=== PATIENT | female | born 1995 | race African-American/Black ===

== ENCOUNTER 2019-03-16 23:47 | Inpatient (IN) ==
[2019-03-17] MEDS ORDERED: ONDANSETRON 4 MG/2 ML VIAL IV PRN ×2 (00:34→17:21)
[2019-03-17] MEDS ORDERED: BUTORPHANOL 2 MG/ML VIAL IV PRN (00:34)
[2019-03-17] MEDS ORDERED: LACTATED RINGERS 1,000 ML IV SCH ×2 (01:00→17:30)
[2019-03-17 01:01] LABS: Basophils % 0.2 % (0.0-0.8); Eosinophils # 0.1 10*3/uL (0.0-0.87); Eosinophils % 0.4 % (0.00-10.9); Hematocrit 28.6 VOL% (35.7-47.0); Hemoglobin 8.6 GM/DL (12.0-16.0); Immature Granulocytes % 0.8 %; Immature Granulocytes Absolute 0.09 #; Lymphocytes # 2.9 10*3/uL (1.4-4.0); Lymphocytes % 25.8 % (21.3-54.2); Mean Corpuscular HGB Conc 30.1 GM/DL (32-36); Mean Corpuscular Volume 77.7 FL (87-102); Mean Platelet Volume 10.4 FL (9.6-12.0); Monocytes % 7.6 % (1.7-12.7); Neutrophils % 65.2 % (38.7-73.9); Platelet Count 226 T/CUMM (130-400); Red Blood Count 3.68 MC/CUMM (3.8-5.5); Red Cell Distribution Width 15.7 % (9.3-17.3); White Blood Count 11.1 T/CUMM (4-12)
[2019-03-17] MEDS ORDERED: INFLUENZA VIRUS VACCINE 0.5 ML SYRINGE IM ONE (01:07)
[2019-03-17 01:19] LABS: Albumin 2.5 G/DL (3.4-5.0); Bilirubin,Total 0.4 MG/DL (0.2-1.0); Calcium 8.4 MG/DL (8.5-10.1); Osmolality,Calculated 274.4 MOS/KG (273-304); Total Protein 7.1 G/DL (6.4-8.3)
[2019-03-17] MEDS ORDERED: OXYTOCIN/LR 20 UNIT/1,000 ML BAG IV SCH (09:00)
[2019-03-17] MEDS ORDERED: diphenhydrAMINE 50 MG/1 ML VIAL IV PRN ×3 (09:35→22:13)
[2019-03-17] MEDS ORDERED: ePHEDrine 50 MG/ML AMP IV PRN (09:35)
[2019-03-17] MEDS ORDERED: CITRIC ACID/SODIUM CITRATE 30 ML UDCUP PO ONE (09:35)
[2019-03-17] MEDS ORDERED: NALOXONE 0.4 MG/ML VIAL IV PRN (09:35)
[2019-03-17] MEDS ORDERED: FAMOTIDINE 20 MG/2 ML VIAL IV ONE (09:35)
[2019-03-17] MEDS ORDERED: LACTATED RINGERS 1,000 ML IV ONE (09:35)
[2019-03-17] MEDS ORDERED: fentaNYL 2 MCG/ROPIV 0.2% EPID 100 ML EPIDURAL SCH (10:00)
[2019-03-17 11:50] LABS: Apearance,Urine CLEAR (Clear); Bacteria,Urine Occasional /HPF (Few); Bilirubin,Urine Negative (Negative); Blood, Urine Small mg/dL (Negative); Glucose,Urine (UA) Negative (Negative); Ketones,Urine 80 mg/dL (Negative); Mucus,Urine Many /LPF (Occasional); Nitrite,Urine Negative (Negative); Protein,Urine Negative; RBC,Urine 12 /HPF (0-4); Squamous Epithelial Cell,Urine Occasional /HPF (0-10); Urine Color Yellow (Yellow); Urine Specific Gravity 1.015 (1.001-1.035); WBC,Urine 24 /HPF (0-6)
[2019-03-17] MEDS ORDERED: ceFAZolin 3,000 MG in SYRINGE 1 EACH IV ONE (15:39)
[2019-03-17] MEDS ORDERED: OXYTOCIN/LR 30 UNIT/1,000 ML BAG IV ONE (15:46)
[2019-03-17] MEDS ORDERED: OXYTOCIN 10 UNIT/ML VIAL IM ONE (15:46)
[2019-03-17 17:14] LABS: Cord Arterial Blood HCO3 19.7 MMOL/L
[2019-03-17 17:14] LABS: Cord Venous Blood HCO3 23.8 MMOL/L; Cord Venous Blood PCO2 42.7 MMHG; Cord Venous Blood PO2 25.1 MMHG
[2019-03-17] MEDS ORDERED: RHO(D) IMMUNE GLOBULIN 300 MCG SYRINGE IM ONE (17:21)
[2019-03-17] MEDS ORDERED: SIMETHICONE CHEW 80 MG TABLET PO PRN (17:21)
[2019-03-17] MEDS ORDERED: OXYTOCIN/LR 20 UNIT/1,000 ML BAG IV ONE (17:21)
[2019-03-17] MEDS ORDERED: ACETAMINOPHEN 325 MG TABLET PO PRN (17:21)
[2019-03-17] MEDS ORDERED: MORPHINE 10 MG/10 ML VIAL ONE (17:34)
[2019-03-17] MEDS ORDERED: LIDOCAINE MPF 2% /EPI 20 ML VIAL ONE (17:35)
[2019-03-17] MEDS ORDERED: PHENYLEPHRINE 1 MG/10 ML SYRINGE IV ONE (17:35)
[2019-03-17] MEDS ORDERED: diphenhydrAMINE 50 MG/1 ML VIAL IV SCH (22:00)
[2019-03-17] MEDS: DOCUSATE SODIUM 100 MG CAPSULE PO SCH (22:21)
[2019-03-18] MEDS: ceFAZolin 1,000 MG in SYRINGE 1 EACH IV SCH ×2 (00:21→09:25)
[2019-03-18] MEDS: HydrOXYzine PAMOATE 25 MG CAPSULE PO PRN ×2 (01:29→08:26)
[2019-03-18 06:06] LABS: Basophils % 0.1 % (0.0-0.8); Eosinophils % 0.1 % (0.00-10.9); Hematocrit 26.8 VOL% (35.7-47.0); Hemoglobin 8.3 GM/DL (12.0-16.0); Immature Granulocytes % 0.6 %; Immature Granulocytes Absolute 0.08 #; Lymphocytes # 2.2 10*3/uL (1.4-4.0); Mean Corpuscular Volume 75.9 FL (87-102); Mean Platelet Volume 10.3 FL (9.6-12.0); Monocytes % 8.7 % (1.7-12.7); NRBC # 0.02 10*3/uL; Neutrophils % 74.5 % (38.7-73.9); Platelet Count 202 T/CUMM (130-400); Red Blood Count 3.53 MC/CUMM (3.8-5.5); Red Cell Distribution Width 15.9 % (9.3-17.3); White Blood Count 13.8 T/CUMM (4-12)
[2019-03-18] MEDS: MULTIVITAMIN (PRENATAL) TABLET PO SCH (08:26)
[2019-03-18] MEDS: METOCLOPRAMIDE 10 MG TABLET PO SCH ×2 (08:27→16:48)
[2019-03-18] MEDS: MAGNESIUM HYDROXIDE SUSP 30 ML UDCUP PO PRN ×2 (08:27→20:32)
[2019-03-18] MEDS: DOCUSATE SODIUM 100 MG CAPSULE PO SCH ×2 (09:25→20:32)
[2019-03-18] MEDS: FERROUS SULFATE 325 MG TABLET PO SCH ×2 (12:07→20:32)
[2019-03-18] MEDS: IBUPROFEN 800 MG TABLET PO PRN (14:52)
[2019-03-19] MEDS: METOCLOPRAMIDE 10 MG TABLET PO SCH ×2 (00:07→08:26)
[2019-03-19] MEDS: IBUPROFEN 800 MG TABLET PO PRN (04:06)
[2019-03-19] MEDS ORDERED: MAGNESIUM CITRATE 300 ML BOTTLE PO ONE (07:51)
[2019-03-19] MEDS: MULTIVITAMIN (PRENATAL) TABLET PO SCH (08:25)
[2019-03-19] MEDS: DOCUSATE SODIUM 100 MG CAPSULE PO SCH (08:25)
[2019-03-19] MEDS: FERROUS SULFATE 325 MG TABLET PO SCH (08:25)
[2019-03-19 08:53] VITALS: BP 131/75
[2019-03-19] MEDS ORDERED: DIPH/TET/ACEL PERT BOOSTER VACCINE 0.5 ML VIAL IM ONE (10:06)
[2019-03-19] MEDS ORDERED: INFLUENZA VIRUS VACCINE 0.5 ML SYRINGE IM ONE (10:06)
== END 2019-03-19 11:00 | disposition home health service (06) | DRG 540 ==
LOC: N.LDOUT 23:47 → N.LD 23:48 → N.OB 03-17 20:55
PROVIDERS: ADMIT Obstetrics & Gynecology; ATTEND Obstetrics & Gynecology
PROC: LDCSECT (ICD-10-PCS; 2019-03-17 16:00)

== ENCOUNTER 2020-03-13 09:51 | Inpatient (IN) ==
[~2020-03-13 09:51] MED LIST: METOCLOPRAMIDE 10 MG TABLET PO SCH
[2020-03-13] MEDS ORDERED: CITRIC ACID/SODIUM CITRATE 30 ML UDCUP PO ONE (10:03)
[2020-03-13] MEDS ORDERED: FAMOTIDINE 20 MG/2 ML VIAL IV ONE (10:03)
[2020-03-13] MEDS ORDERED: ceFAZolin 2,000 MG in PREMIX 1 EACH IV ONE (10:03)
[2020-03-13] MEDS ORDERED: INFLUENZA VIRUS VACCINE 0.5 ML SYRINGE IM ONE (10:07)
[2020-03-13] MEDS ORDERED: LACTATED RINGERS 1,000 ML IV SCH ×2 (10:30→15:00)
[2020-03-13 10:32] LABS: Basophils % 0.1 % (0.0-0.8); Eosinophils # 0.1 10*3/uL (0.0-0.87); Eosinophils % 0.7 % (0.00-10.9); Hematocrit 29.9 VOL% (35.7-47.0); Hemoglobin 8.9 GM/DL (12.0-16.0); Immature Granulocytes % 0.6 %; Immature Granulocytes Absolute 0.06 #; Lymphocytes # 2.8 10*3/uL (1.4-4.0); Lymphocytes % 29.3 % (21.3-54.2); Mean Corpuscular HGB Conc 29.8 GM/DL (32-36); Mean Corpuscular Volume 70.7 FL (87-102); Mean Platelet Volume 10.6 FL (9.6-12.0); Monocytes % 6.3 % (1.7-12.7); NRBC # 0.03 10*3/uL; Platelet Count 273 T/CUMM (130-400); Red Blood Count 4.23 MC/CUMM (3.8-5.5); Red Cell Distribution Width 20.1 % (9.3-17.3); White Blood Count 9.6 T/CUMM (4-12)
[2020-03-13 10:57] LABS: Albumin 2.6 G/DL (3.4-5.0); Bilirubin,Total 0.4 MG/DL (0.2-1.0); Calcium 8.8 MG/DL (8.5-10.1); Osmolality,Calculated 268.8 MOS/KG (273-304); Total Protein 7.8 G/DL (6.4-8.3)
[2020-03-13] MEDS ORDERED: OXYTOCIN/LR 30 UNIT/1,000 ML BAG IV ONE (11:14)
[2020-03-13] MEDS ORDERED: OXYTOCIN 10 UNIT/ML VIAL IM ONE (11:14)
[2020-03-13] MEDS ORDERED: BUPIVACAINE SPINAL 0.75% 2 ML AMP SPINAL ONE (11:49)
[2020-03-13] MEDS ORDERED: MORPHINE 10 MG/10 ML VIAL ONE (11:49)
[2020-03-13] MEDS ORDERED: BUPIVACAINE MPF 0.25% 30 ML VIAL ONE (11:49)
[2020-03-13] MEDS ORDERED: PHENYLEPHRINE 10 MG/1 ML VIAL IV ONE (13:28)
[2020-03-13] MEDS ORDERED: ONDANSETRON 4 MG/2 ML VIAL ONE (13:56)
[2020-03-13 14:09] LABS: Cord Arterial Blood HCO3 23.9 MMOL/L
[2020-03-13 14:12] LABS: Cord Venous Blood HCO3 24.2 MMOL/L; Cord Venous Blood PCO2 44.4 MMHG; Cord Venous Blood PO2 32.1
[2020-03-13 14:12] LABS: Bilirubin,Urine Negative (Negative); Blood, Urine Negative (Negative); Glucose,Urine (UA) Negative (Negative); Ketones,Urine 20 mg/dL (Negative); Mucus,Urine Many /LPF (Occasional); Nitrite,Urine Negative (Negative); Protein,Urine 30 MG/DL; RBC,Urine <1 /HPF (0-4); Squamous Epithelial Cell,Urine Occasional /HPF (0-10); Urine Appearance CLEAR (Clear); Urine Color Amber (Yellow); Urine Specific Gravity 1.026 (1.001-1.035); WBC,Urine 4 /HPF (0-6)
[2020-03-13] MEDS ORDERED: RHO(D) IMMUNE GLOBULIN 300 MCG SYRINGE IM ONE (14:34)
[2020-03-13] MEDS ORDERED: OXYTOCIN/LR 20 UNIT/1,000 ML BAG IV ONE (14:34)
[2020-03-13] MEDS ORDERED: ACETAMINOPHEN 325 MG TABLET PO PRN (14:34)
[2020-03-13] MEDS ORDERED: ONDANSETRON 4 MG/2 ML VIAL IV PRN (14:34)
[2020-03-13] MEDS ORDERED: ceFAZolin 1,000 MG in SYRINGE 1 EACH IV SCH (15:00)
[2020-03-13] MEDS: DOCUSATE SODIUM 100 MG CAPSULE PO SCH (20:25)
[2020-03-13] MEDS: diphenhydrAMINE 50 MG/1 ML VIAL IV PRN (20:26)
[2020-03-13] MEDS: FERROUS SULFATE 325 MG TABLET PO SCH (20:58)
[2020-03-13] MEDS: ceFAZolin 1,000 MG in SYRINGE 1 EACH IV SCH (21:07)
[2020-03-13 23:03] LABS: Basophils % 0.2 % (0.0-0.8); Eosinophils % 0.2 % (0.00-10.9); Hematocrit 27.4 VOL% (35.7-47.0); Hemoglobin 8.2 GM/DL (12.0-16.0); Immature Granulocytes % 0.5 %; Immature Granulocytes Absolute 0.08 #; Lymphocytes # 3.2 10*3/uL (1.4-4.0); Lymphocytes % 20.1 % (21.3-54.2); Mean Corpuscular HGB Conc 29.9 GM/DL (32-36); Mean Corpuscular Volume 70.1 FL (87-102); Mean Platelet Volume 10.1 FL (9.6-12.0); Monocytes % 5.5 % (1.7-12.7); NRBC # 0.02 10*3/uL; Neutrophils % 73.5 % (38.7-73.9); Platelet Count 231 T/CUMM (130-400); Red Blood Count 3.91 MC/CUMM (3.8-5.5); White Blood Count 16.1 T/CUMM (4-12)
[2020-03-14] MEDS: diphenhydrAMINE 50 MG/1 ML VIAL IV PRN (04:39)
[2020-03-14] MEDS: ceFAZolin 1,000 MG in SYRINGE 1 EACH IV SCH (04:49)
[2020-03-14 07:19] LABS: Basophils % 0.3 % (0.0-0.8); Eosinophils # 0.1 10*3/uL (0.0-0.87); Eosinophils % 0.4 % (0.00-10.9); Hematocrit 26.9 VOL% (35.7-47.0); Hemoglobin 7.9 GM/DL (12.0-16.0); Immature Granulocytes % 0.5 %; Immature Granulocytes Absolute 0.06 #; Lymphocytes # 2.1 10*3/uL (1.4-4.0); Mean Corpuscular HGB Conc 29.4 GM/DL (32-36); Mean Corpuscular Volume 70.4 FL (87-102); Mean Platelet Volume 10.1 FL (9.6-12.0); Monocytes % 7.3 % (1.7-12.7); Neutrophils % 73.5 % (38.7-73.9); Platelet Count 223 T/CUMM (130-400); Red Blood Count 3.82 MC/CUMM (3.8-5.5); Red Cell Distribution Width 19.8 % (9.3-17.3); White Blood Count 11.8 T/CUMM (4-12)
[2020-03-14] MEDS ORDERED: RHO(D) IMMUNE GLOBULIN 300 MCG SYRINGE IM ONE (09:41)
[2020-03-14] MEDS: MAGNESIUM HYDROXIDE SUSP 30 ML UDCUP PO PRN ×2 (10:11→19:45)
[2020-03-14] MEDS: METOCLOPRAMIDE 10 MG TABLET PO SCH ×2 (10:11→17:25)
[2020-03-14] MEDS: DOCUSATE SODIUM 100 MG CAPSULE PO SCH ×3 (10:11→21:48)
[2020-03-14] MEDS: FERROUS SULFATE 325 MG TABLET PO SCH ×3 (10:11→21:48)
[2020-03-14] MEDS: SIMETHICONE CHEW 80 MG TABLET PO PRN ×2 (10:11→19:45)
[2020-03-14] MEDS: MULTIVITAMIN (PRENATAL) TABLET PO SCH (10:12)
[2020-03-14] MEDS: IBUPROFEN 800 MG TABLET PO PRN (19:42)
[2020-03-14] MEDS ORDERED: BISACODYL 10 MG SUPP RECTAL PRN (20:58)
[2020-03-15] MEDS: METOCLOPRAMIDE 10 MG TABLET PO SCH ×2 (00:30→10:03)
[2020-03-15] MEDS ORDERED: MAGNESIUM CITRATE 300 ML BOTTLE PO ONE (04:13)
[2020-03-15] MEDS: IBUPROFEN 800 MG TABLET PO PRN (06:09)
[2020-03-15 07:14] VITALS: BP 100/61
[2020-03-15] MEDS: FERROUS SULFATE 325 MG TABLET PO SCH (09:58)
[2020-03-15] MEDS: DOCUSATE SODIUM 100 MG CAPSULE PO SCH (09:58)
[2020-03-15] MEDS: MULTIVITAMIN (PRENATAL) TABLET PO SCH (09:58)
[2020-03-15] MEDS ORDERED: INFLUENZA VIRUS VACCINE 0.5 ML SYRINGE IM ONE (10:24)
== END 2020-03-15 13:25 | disposition home or self-care (01) | DRG 540 ==
LOC: N.LD 09:51 → N.OB 18:07
PROVIDERS: ADMIT Obstetrics & Gynecology; ATTEND Obstetrics & Gynecology
PROC: LDCSECT (ICD-10-PCS; 2020-03-13 12:45)